=== PATIENT | female | born 1985 | race Two or more races ===

== ENCOUNTER 2016-09-23 01:00 | Inpatient (IN) | payer OTHER ==
[2016-09-23 01:50] VITALS: BP 112/70
[2016-09-23] MEDS: Morphine Sulfate 2 mg/mL 1mL Syr IVP PRN ×5 (03:01→22:24)
[2016-09-23] MEDS ORDERED: Sodium Chloride 0.9% 1,000 ML IV SCH (03:30)
[2016-09-23 07:01] LABS: ALB/GLOB RATIO 1.4 (1.0-1.8); ALKALINE PHOSPHATASE 93 U/L (34-104); ANION GAP 9.1 (7.0-16.0); BILIRUBIN,TOTAL 0.2 mg/dL (0.3-1.0); BUN - UREA NITROGEN 12 mg/dL (7-25); CALCIUM SERUM 8.7 mg/dL (8.6-10.3); CARBON DIOXIDE 20.8 mEq/L (21.0-31.0); CHLORIDE 114 mEq/L (98-107); CREATININE - SERUM 0.6 mg/dL (0.6-1.2); GLUCOSE 170 mg/dL (70-105); SGOT 10 U/L (13-39); SGPT/ALT 20 U/L (7-52); SODIUM SERUM 141 mEq/L (136-145)
[2016-09-23 07:20] LABS: POTASSIUM SERUM 2.9 mEq/L (3.5-5.1)
[2016-09-23 07:56] LABS: % BASOPHILS 0.1 % (0.0-2.0); % EOSINOPHILS 0.4 % (0.0-5.0); % LYMPHOCYTES 12.3 % (20.0-50.0); % MONOCYTES 0.8 % (2.0-10.0); % NEUTROPHILS 86.4 % (40.0-80.0); HEMATOCRIT 27.6 % (35.0-45.0); HEMOGLOBIN 9.2 gm/dL (11.7-15.5); MEAN CORPUSCULAR HEMOGLOBIN 27.2 pg (27.0-31.0); MEAN CORPUSCULAR HGB CONC 33.1 pg (28.0-36.0); MEAN PLATELET VOLUME 9.8 fl; NEUTROPHILE ABSOLUTE 7.4 Th/cmm (1.8-8.0); PLATELET COUNT 299 Th/cmm (150-400); RED BLOOD COUNT 3.37 Mil/cmm (3.80-5.10); RED CELL DISTRIBUTION WIDTH 17.9 % (11.5-20.0); WHITE BLOOD COUNT 8.6 Th/cmm (4.8-10.8)
[2016-09-23] MEDS ORDERED: Albuterol Nebulizer 2.5mg/3mL HHN PRN (08:38)
[2016-09-23] MEDS ORDERED: Ipratropium Neb 0.5 mg/2.5 mL UD HHN PRN (08:38)
[2016-09-23] MEDS ORDERED: MONTELUKAST SODIUM 4 MG PO SCH (09:00)
[2016-09-23] MEDS ORDERED: Potassium Chloride 40 MEQ, Lidocaine 1% 20mL Vial 25 MG in Sodium Chloride 0.9% 250 ML IV ONE (09:00)
--- NOTE | 2016-09-23 12:33 | Internal Medicine Prog Note ---
Internal Medicine Subjective - Subjective Service Date: 09/23/16 ([facility] [id number]) Internal Medicine Objective - Results Result Diagrams: 09/23/16 06:15 09/23/16 06:15 Recent Labs: Laboratory Last Values WBC 8.6 Th/cmm (4.8-10.8) 09/23/16 06:15 RBC 3.37 Mil/cmm (3.80-5.10) L 09/23/16 06:15 Hgb 9.2 gm/dL (11.7-15.5) L 09/23/16 06:15 Hct 27.6 % (35.0-45.0) L 09/23/16 06:15 MCV 82.0 fl (81-100) 09/23/16 06:15 MCH 27.2 pg (27.0-31.0) 09/23/16 06:15 MCHC Differential 33.1 pg (28.0-36.0) 09/23/16 06:15 RDW 17.9 % (11.5-20.0) 09/23/16 06:15 Plt Count 299 Th/cmm (150-400) 09/23/16 06:15 MPV 9.8 fl 09/23/16 06:15 Neutrophils % 86.4 % (40.0-80.0) H 09/23/16 06:15 Lymphocytes % 12.3 % (20.0-50.0) L 09/23/16 06:15 Monocytes % 0.8 % (2.0-10.0) L 09/23/16 06:15 Eosinophils % 0.4 % (0.0-5.0) 09/23/16 06:15 Basophils % 0.1 % (0.0-2.0) 09/23/16 06:15 Sodium 141 mEq/L (136-145) 09/23/16 06:15 Potassium 2.9 mEq/L (3.5-5.1) L* 09/23/16 06:15 Chloride 114 mEq/L (98-107) H 09/23/16 06:15 Carbon Dioxide 20.8 mEq/L (21.0-31.0) L 09/23/16 06:15 Anion Gap 9.1 (7.0-16.0) 09/23/16 06:15 BUN 12 mg/dL (7-25) 09/23/16 06:15 Creatinine 0.6 mg/dL (0.6-1.2) 09/23/16 06:15 Est GFR ( Amer) > 60.0 ml/min (>90) 09/23/16 06:15 Est GFR (Non-Af Amer) > 60.0 ml/min 09/23/16 06:15 BUN/Creatinine Ratio 20.0 09/23/16 06:15 Glucose 170 mg/dL (70-105) H 09/23/16 06:15 Calcium 8.7 mg/dL (8.6-10.3) 09/23/16 06:15 Magnesium 1.8 mg/dL (1.9-2.7) L 09/23/16 06:15 Total Bilirubin 0.2 mg/dL (0.3-1.0) L 09/23/16 06:15 AST 10 U/L (13-39) L 09/23/16 06:15 ALT 20 U/L (7-52) 09/23/16 06:15 Alkaline Phosphatase 93 U/L (34-104) 09/23/16 06:15 Total Protein 6.2 gm/dL (6.0-8.3) 09/23/16 06:15 Albumin 3.6 gm/dL (3.7-5.3) L 09/23/16 06:15 Globulin 2.6 gm/dL 09/23/16 06:15 Albumin/Globulin Ratio 1.4 (1.0-1.8) 09/23/16 06:15 - Physical Exam Vitals and I&O: Vital Signs Temp 97.6 F 09/23/16 08:36 Pulse 69 09/23/16 08:36 Resp 18 09/23/16 09:32 BP 115/60 09/23/16 08:36 Pulse Ox 100 09/23/16 08:36 Intake & Output 09/22/16 09/23/16 09/23/16 18:59 06:59 18:59 Intake Total 200 Balance 200 Weight (lbs) 116 lb Intake: Oral 200 Other: # Voids 1 Active Medications: Current Medications Acetaminophen (Tylenol) 650 mg PO Q4HR PRN PRN Reason: Pain or Fever >101 Stop: 11/22/16 08:38 Albuterol Sulfate (Albuterol 2.5mg/3ml Neb Ud) 2.5 mg HHN Q2HRT PRN PRN Reason: Shortness of Breath or Wheeze Stop: 11/22/16 08:37 Diphenhydramine HCl (Benadryl 50 Mg/Ml) 25 mg IVP Q4HR PRN PRN Reason: Allergy Symptoms Stop: 11/22/16 02:18 Last Admin: 09/23/16 11:50 Dose: 25 mg Potassium Chloride/Dextrose/Sod Cl (D5-0.9ns W/40 Meq Kcl) 1,000 mls @ 100 mls/ hr IV .Q10H YARELI Stop: 11/22/16 08:38 Potassium Chloride 40 meq/Lidocaine HCl 25 mg/ Sodium Chloride 272.5 mls @ 68 mls/hr IV X1 ONE Stop: 09/23/16 13:00 Last Admin: 09/23/16 09:34 Dose: 68 mls/hr Magnesium Sulfate (Magnesium Sulfate Premix) 2 gm in 50 mls @ 25 mls/hr IV X1 ONE Stop: 09/23/16 14:24 Ipratropium [place] (Atrovent Neb 0.5mg/2.5ml) 0.5 mg HHN Q2HRT PRN PRN Reason: Shortness of Breath or Wheeze Stop: 11/22/16 08:37 Levetiracetam (Keppra) 500 mg PO BID [facility] Stop: 11/22/16 08:59 Last Admin: 09/23/16 09:12 Dose: 500 mg Levothyroxine Sodium (Synthroid) 0.025 mg PO QDAC [facility] Stop: 11/23/16 07:29 Lorazepam (Ativan) 1 mg IV Q4HR PRN; Protocol PRN Reason: Seizure Stop: 11/22/16 08:40 Miscellaneous (Montelukast Sodium [Singulair]) 4 mg PO DAILY YARELI Stop: 11/22/16 08:59 Morphine Sulfate (Morphine) 2 mg IVP Q4HR PRN PRN Reason: Abdominal Pain Stop: 11/22/16 02:15 Last Admin: 09/23/16 11:49 Dose: 2 mg Ondansetron HCl (Zofran) 4 mg IV Q4H PRN PRN Reason: Nausea / Vomiting Stop: 11/22/16 02:15 Last Admin: 09/23/16 03:20 Dose: 4 mg Pantoprazole Sodium (Protonix) 40 mg IVP BID YARELI Stop: 11/22/16 08:59 Last Admin: 09/23/16 09:12 Dose: 40 mg Zolpidem Tartrate (Ambien) 10 mg PO HS PRN PRN Reason: Insomnia Stop: 11/22/16 08:37 Internal Medicine Assmt/Plan - Assessment Assessment: Intractable nausea and vomiting possible gi bleed? abdominal pain seizures hx edometrial ca hypomagnesemia asthma
[2016-09-23] MEDS ORDERED: Mag Sulfate 2gm/50mL Premix 2 GM/50 ML BAG IV ONE (13:00)
--- NOTE | 2016-09-23 15:13 | History & Physical ---
CHIEF COMPLAINT: Acute chest pain, diarrhea, and nausea. HISTORY OF PRESENT ILLNESS: This is a 31-year-old female who is a direct admission from [facility]. According to the patient, she has been having chest pain with diarrhea associated with vomiting since last week on Thursday. The patient states that she saw tinged of blood in her diarrhea, but denied any blood in her vomit. The patient states that she has been having off and on fevers from 98 to as high as 103. The patient also stated that she was recently discharged from [facility] on Thursday and she was sent home with central line to receive IV antibiotics due to focal infection in her blood. The patient denies any weakness, any dizziness or any headache. For continuation of care and due to insurance purposes, the patient is now here at [facility]. PAST MEDICAL HISTORY: Endometrial cancer, DVT, asthma, hypothyroidism, seizure and sepsis. PAST SURGICAL HISTORY: Laparoscopic appendectomy, hysterectomy and I and D. ALLERGIES: KETOROLAC, ASPIRIN, CLINDAMYCIN, HYDROMORPHONE, IBUPROFEN, IODINE AND METOCLOPRAMIDE. FAMILY HISTORY: Noncontributory. MEDICATIONS: Unasyn, Keppra, Singulair, albuterol inhaler, Synthroid, ____, [place], cisplatin, ____ and IV heparin. REVIEW OF SYSTEMS: GENERAL: Denies any fever or any chills. CARDIOVASCULAR: Complains of off and on chest pressure. RESPIRATORY: Denies any shortness of breath. GASTROINTESTINAL: Denies any nausea, vomiting or any diarrhea at this time. GENITOURINARY: Denies any dysuria. All other systems are reviewed by me and are negative. PHYSICAL EXAMINATION: EXTREMITIES: The patient is well developed, well nourished, no apparent distress. VITAL SIGNS: Temperature 97.6, heart rate ____, blood pressure 115/60, respirations 17, O2 100%. HEENT: Head; normocephalic, atraumatic. NECK: Supple. No mass. LUNGS: Clear bilaterally. HEART: Regular rhythm. ABDOMEN: Soft, nontender. LABORATORY DATA: WBC 8.6, H and H 9.2 and 27.6, platelet of 299. Sodium 141, potassium 2.9, chloride 114, carbon dioxide 20.8, BUN 12, creatinine 0.6. Magnesium 1.8. ASSESSMENT: Intractable nausea, vomiting, diarrhea, abdominal pain, chest pain, history of endometrial cancer, history of asthma, history of hypothyroidism and seizure disorder. PLAN: The patient will be admitted to the telemetry unit. The patient will have a consultation with Dr. Montanez. The patient will be kept on a full liquid diet. CBC and BMP will be monitored as well. The patient will be kept on IV fluids for hydration and we will monitor the patient's electrolytes level. We will continue to monitor the patient. JOB# [id number]
--- NOTE | 2016-09-23 16:02 | Admit Criteria Form ---
Admit Criteria Forms - Admit Criteria Diagnosis: HYPONATREMIA; HYPERNATREMIA; HYPOKALEMIA; HYPERKALEMIA; HYPOCALCEMIA; HYPERCALCEMIA Clinical Indications for Inpatient Care (Place 'X' for any and all applicable criteria): Ongoing inpatient care may be indicated for ANY ONE of the following [G](1)(2)(3 )(5): [ ]I. Hyponatremia with ANY ONE of the following: [ ]a) Sodium less than 130 mEq/L (mmol/L) (new) (6)(22) [ ]b) Sodium less than 135 mEq/L (mmol/L) with ANY ONE of the following: [ ]i) Severe medical etiology requiring inpatient management (eg, heart failure, hypovolemia) [ ]ii) Altered mental status [ ]iii) Seizures [ ]II. Hypernatremia with ANY ONE of the following: [ ]a) Sodium greater than 155 mEq/L (mmol/L) [ ]b) Sodium greater than 150 mEq/L (mmol/L) with ANY ONE of the following: [ ] i) Altered mental status [ ]ii) Seizures [ ]iii) Severe medical etiology (eg, hypovolemia, diabetes insipidus) [ ]iv) Severe weakness [ ]v) Severe medical etiology (eg, hemolysis, infection, drug overdose) [X]III. Hypokalemia with ANY ONE of the following: [ ]a) Potassium less than 2.5 mEq/L (mmol/L) despite outpatient and emergency treatment [X]b) Potassium less than 3.0 mEq/L (mmol/L) with ANY ONE of the following: [ ]i) Weakness [ ]ii) Cardiac abnormality (eg, arrhythmia, conduction disturbance) [ ]iii) Cardiac ischemia [ ]iv) Ileus [ ]v) Ongoing medical cause requiring inpatient management. ( e.g., acute renal wasting, SIADH) [X]vi) Other severe symptoms [ ] IV. Hyperkalemia with ANY ONE of the following: [ ]a) Potassium greater than 6.5 mEq/L (mmol/L) [ ]b) Potassium greater than 5 mEq/L (mmol/L) with ANY ONE of the following: [ ]i) Severe ECG findings [H] [ ]ii) Acute worsening of renal failure (creatinine greater than 2.5 mg/dL (221 micromoles/L) or significant elevation for age and size) [ ] V. Hypocalcemia with ANY ONE of the following: [ ]a) Calcium less than 7 mg/dL (1.75 mmol/L) despite outpatient and emergency treatment(19) [ ]b) Calcium less than 8 mg/dL (2 mmol/L) with significant symptoms or findings; examples include: [ ]i) Cardiac abnormality (eg, arrhythmia or conduction disturbance) [ ]ii) Altered mental status [ ]iii) Seizures [ ]iv) Breathing difficulty [ ]v) Muscle spasms [ ]. Hypercalcemia with ANY ONE of the following: [ ]a) Calcium greater than 14 mg/dL (3.5 mmol/L) [ ]b) Calcium greater than 12 mg/dL (3 mmol/L) with ANY ONE of the following: [ ]i) Significant dehydration or hypovolemia as indicated by ANY ONE of the following(2): [ ]1. Clinically significant dehydration as indicated by ANY ONE of the following: [ ]A. Acute loss of weight from baseline (5% of body weight in adults, 9% in pediatric patients) [ ]B. Hemodynamic instability [ ]C. Acute renal failure [ ]D. Serum sodium greater than 150 mEq/L (mmol/L) [ ]2) Dehydration that is persistent indicated by ALL of the following: [ ]A. Oral rehydration therapy not tolerated or insufficient to adequately correct dehydration [ ]B. Appropriate intravenous treatment (eg, fluids ) does not readily correct dehydration ie, after 12 to 24 hours of treatment) [ ]ii) Significant symptoms or findings; examples include: [ ]1) Altered mental status [ ]2) Cardiac abnormality (eg, arrhythmia, conduction disturbance) [ ]3) Cardiac abnormality (eg, arrhythmia, conduction disturbance) The original [employer]formerly [facility] content created by [employer] has been revised. The portions of the content which have been revised are identified through the use of italic text or in bold, and [facility] has neither reviewed nor approved the modified material. All other unmodified content is copyright [facility] [employer] Please see references footnoted in the original [employer] [facility] edition 2016 Admit Criteria Met?: Yes
[2016-09-23] MEDS: D5-0.9NS w/40 mEq KCL 1,000 ML IV SCH (16:33)
[2016-09-23] MEDS: Ampicillin Sodium/Sulbactam 1.5 GM in Sodium Chloride 0.9% 100 ML IV SCH (17:39)
[2016-09-24] MEDS: Morphine Sulfate 2 mg/mL 1mL Syr IVP PRN ×5 (03:49→23:41)
[2016-09-24 06:07] LABS: % BASOPHILS 0.7 % (0.0-2.0); % EOSINOPHILS 0.4 % (0.0-5.0); % LYMPHOCYTES 32.9 % (20.0-50.0); % MONOCYTES 5.8 % (2.0-10.0); % NEUTROPHILS 60.2 % (40.0-80.0); HEMATOCRIT 25.3 % (35.0-45.0); HEMOGLOBIN 8.4 gm/dL (11.7-15.5); MEAN CELL VOLUME 81.8 fl (81-100); MEAN PLATELET VOLUME 9.3 fl; PLATELET COUNT 262 Th/cmm (150-400); RED CELL DISTRIBUTION WIDTH 18.1 % (11.5-20.0); WHITE BLOOD COUNT 8.4 Th/cmm (4.8-10.8)
[2016-09-24 06:28] LABS: ALB/GLOB RATIO 1.4 (1.0-1.8); ALKALINE PHOSPHATASE 73 U/L (34-104); ANION GAP 7.3 (7.0-16.0); BILIRUBIN,TOTAL 0.2 mg/dL (0.3-1.0); BUN - UREA NITROGEN 5 mg/dL (7-25); BUN/CREATININE RATIO 7.1; CALCIUM SERUM 7.9 mg/dL (8.6-10.3); CHLORIDE 118 mEq/L (98-107); CREATININE - SERUM 0.7 mg/dL (0.6-1.2); GLUCOSE 213 mg/dL (70-105); PHOSPHOROUS 2.7 mg/dL (2.5-5.0); POTASSIUM SERUM 4.3 mEq/L (3.5-5.1); SGOT 9 U/L (13-39); SGPT/ALT 16 U/L (7-52); SODIUM SERUM 143 mEq/L (136-145)
[2016-09-24] MEDS: Ampicillin Sodium/Sulbactam 1.5 GM in Sodium Chloride 0.9% 100 ML IV SCH ×5 (06:31→23:40)
[2016-09-24 07:20] LABS: TSH 0.21 uIU/ml (0.34-5.60)
[2016-09-24] MEDS: Levothyroxine 0.025 Mg Tab PO SCH (07:30)
--- NOTE | 2016-09-24 10:01 | Consultation ---
INPATIENT GASTROINTESTINAL CONSULTATION REFERRING PHYSICIAN: Dr. Curiel. REASON FOR CONSULTATION: Nausea, vomiting, and diarrhea. HISTORY OF PRESENT ILLNESS: A 31-year-old female, who has nausea, vomiting, diarrhea for approximately one week, came to the hospital for these symptoms. She denies having any hematemesis, coffee-ground emesis. Her diarrhea is without any blood. PAST MEDICAL HISTORY: Endometrial cancer, DVT, asthma, hypothyroidism, seizure disorder. PAST SURGICAL HISTORY: Laparoscopic appendectomy, hysterectomy, I and D. FAMILY HISTORY: Father with colon cancer. SOCIAL HISTORY: Denies tobacco, alcohol, or IV drug usage. ALLERGIES: KETOROLAC, ASPIRIN, CLINDAMYCIN, HYDROMORPHONE, IBUPROFEN, IODINE. REVIEW OF SYSTEMS: Ten-point review of system was notable for the nausea, vomiting, diarrhea. All systems were otherwise negative. PHYSICAL EXAMINATION: VITAL SIGNS: Temperature is 97.8, breathing 17, pulse of 80, blood pressure 120/70, satting 99%. GENERAL: In no apparent distress. HEENT: Eyes are anicteric, normal conjunctivae. Head normocephalic, atraumatic. Moist mucous membranes. NECK: Soft, supple. CHEST: Clear, no effort. CARDIOVASCULAR: Regular rate and rhythm. ABDOMEN: Soft, nondistended, mildly tender lower abdomen. No rebound or guarding. SKIN: Warm, dry. EXTREMITIES: Revealed no cyanosis. PSYCHOLOGIC: Alert and oriented x 3. LABORATORY DATA: Showed white count 8.6, hemoglobin 9.2, platelets of 299, total bilirubin 0.2, AST 10, ALT 20, alkaline phosphatase 93. IMPRESSION: This is a 31-year-old female with nausea, vomiting, diarrhea of unclear etiology. Cause could be gastroenteritis versus underlying infectious colitis or inflammatory bowel disease or even irritable bowel syndrome. PLAN: 1. Check stool studies. 2. Check test. 3. If test is negative, then consider CT of the abdomen and pelvis. 4. Check an abdominal ultrasound in the meantime. 5. May need endoscopic workup if symptoms persist and we will check to see if the patient has records elsewhere of procedures. Thank you for allowing me to participate. Please call me if you have any questions. JOB# [id number]
[2016-09-24] MEDS: D5-0.9NS w/40 mEq KCL 1,000 ML IV SCH ×2 (10:34→16:31)
--- NOTE | 2016-09-24 11:34 | Diagnostic Imaging Report ---
Ultrasound abdomen History: abdominal pain, nausea and vomiting COMPARISON: None Technique: Sonography of the abdomen was performed in multiple planes. FINDINGS: Exam is limited due to bowel gas. The liver demonstrates normal echogenicity with no evidence of focal lesions. The liver measures 14.9 cm. No evidence of gallstones or gallbladder wall thickening. The common bile duct measures 2 mm. Evaluation of the pancreas is limited due to bowel gas. The right kidney measures 10.5 cm. No evidence of focal lesions or hydronephrosis. The left kidney measures 10.8 cm. No evidence of focal lesions. There is mild left hydronephrosis. The spleen measures 9.3 cm. The visualized portions of the abdominal aorta are within normal limits in size. IMPRESSION: Mild left hydronephrosis. No sonographic evidence of renal stones. If indicated, CT would provide for additional detail and assessment No evidence of gallstones.
--- NOTE | 2016-09-24 16:05 | Internal Medicine Prog Note ---
Internal Medicine Subjective - Subjective Service Date: 09/24/16 Patient seen and examined:: with staff Patient is:: awake Per staff patient is:: no adverse event Internal Medicine Objective - Results Result Diagrams: 09/24/16 05:54 09/24/16 05:54 Recent Labs: Laboratory Last Values WBC 8.4 Th/cmm (4.8-10.8) 09/24/16 05:54 RBC 3.10 Mil/cmm (3.80-5.10) L 09/24/16 05:54 Hgb 8.4 gm/dL (11.7-15.5) L 09/24/16 05:54 Hct 25.3 % (35.0-45.0) L 09/24/16 05:54 MCV 81.8 fl (81-100) 09/24/16 05:54 MCH 27.0 pg (27.0-31.0) 09/24/16 05:54 MCHC Differential 33.0 pg (28.0-36.0) 09/24/16 05:54 RDW 18.1 % (11.5-20.0) 09/24/16 05:54 Plt Count 262 Th/cmm (150-400) 09/24/16 05:54 MPV 9.3 fl 09/24/16 05:54 Neutrophils % 60.2 % (40.0-80.0) 09/24/16 05:54 Lymphocytes % 32.9 % (20.0-50.0) 09/24/16 05:54 Monocytes % 5.8 % (2.0-10.0) 09/24/16 05:54 Eosinophils % 0.4 % (0.0-5.0) 09/24/16 05:54 Basophils % 0.7 % (0.0-2.0) 09/24/16 05:54 Sodium 143 mEq/L (136-145) 09/24/16 05:54 Potassium 4.3 mEq/L (3.5-5.1) 09/24/16 05:54 Chloride 118 mEq/L (98-107) H 09/24/16 05:54 Carbon Dioxide 22.0 mEq/L (21.0-31.0) 09/24/16 05:54 Anion Gap 7.3 (7.0-16.0) 09/24/16 05:54 BUN 5 mg/dL (7-25) L 09/24/16 05:54 Creatinine 0.7 mg/dL (0.6-1.2) 09/24/16 05:54 Est GFR ( Amer) > 60.0 ml/min (>90) 09/24/16 05:54 Est GFR (Non-Af Amer) > 60.0 ml/min 09/24/16 05:54 BUN/Creatinine Ratio 7.1 09/24/16 05:54 Glucose 213 mg/dL (70-105) H 09/24/16 05:54 Calcium 7.9 mg/dL (8.6-10.3) L 09/24/16 05:54 Phosphorus 2.7 mg/dL (2.5-5.0) 09/24/16 05:54 Magnesium 2.0 mg/dL (1.9-2.7) 09/24/16 05:54 Total Bilirubin 0.2 mg/dL (0.3-1.0) L 09/24/16 05:54 AST 9 U/L (13-39) L 09/24/16 05:54 ALT 16 U/L (7-52) 09/24/16 05:54 Alkaline Phosphatase 73 U/L (34-104) 09/24/16 05:54 Ammonia 47 umol/L (16-53) 09/24/16 05:54 Total Protein 5.4 gm/dL (6.0-8.3) L 09/24/16 05:54 Albumin 3.1 gm/dL (3.7-5.3) L 09/24/16 05:54 Globulin 2.3 gm/dL 09/24/16 05:54 Albumin/Globulin Ratio 1.4 (1.0-1.8) 09/24/16 05:54 TSH 0.21 uIU/ml (0.34-5.60) L 09/24/16 05:54 Urine Test NEGATIVE 09/24/16 08:30 - Physical Exam Vitals and I&O: Vital Signs Temp 98.3 F 09/24/16 12:00 Pulse 65 09/24/16 12:00 Resp 18 09/24/16 15:33 BP 131/75 09/24/16 12:00 Pulse Ox 100 09/24/16 12:00 Intake & Output 09/23/16 09/24/16 09/24/16 18:59 06:59 18:59 Intake Total 100 1100 200 Balance 100 1100 200 Intake: Intake, IV Amount 100 1100 200 Ampicillin Sodium/ 100 100 200 Sulbactam 1.5 gm In Sodium Chloride 0.9% 100 ml @ 100 mls/hr IV Q6HR [facility] Rx#:[id number] D5-0.9NS w/40 mEq KCL 1, 1000 000 ml @ 100 mls/hr IV . Q10H [facility] Rx#:[id number] Active Medications: Current Medications Acetaminophen (Tylenol) 650 mg PO Q4HR PRN PRN Reason: Pain or Fever >101 Stop: 11/22/16 08:38 Albuterol Sulfate (Albuterol 2.5mg/3ml Neb Ud) 2.5 mg HHN Q2HRT PRN PRN Reason: Shortness of Breath or Wheeze Stop: 11/22/16 08:37 Diphenhydramine HCl (Benadryl 50 Mg/Ml) 25 mg IVP Q4HR PRN PRN Reason: Allergy Symptoms Stop: 11/22/16 02:18 Last Admin: 09/24/16 13:57 Dose: 25 mg Ampicillin Sodium/Sulbactam (Sodium 1.5 gm/ Sodium Chloride) 100 mls @ 100 mls/ hr IV Q6HR [facility] Stop: 11/22/16 17:59 Last Infusion: 09/24/16 12:48 Dose: Infused Potassium Chloride/Dextrose/Sod Cl (D5-0.9ns W/40 Meq Kcl) 1,000 mls @ 70 mls/ hr IV .[id number] [facility] Stop: 11/23/16 15:29 Ipratropium [place] (Atrovent Neb 0.5mg/2.5ml) 0.5 mg HHN Q2HRT PRN PRN Reason: Shortness of Breath or Wheeze Stop: 11/22/16 08:37 Levetiracetam (Keppra) 500 mg PO BID [facility] Stop: 11/22/16 08:59 Last Admin: 09/24/16 08:37 Dose: 500 mg Levothyroxine Sodium (Synthroid) 0.025 mg PO QDAC [facility] Stop: 11/23/16 07:29 Last Admin: 09/24/16 07:30 Dose: Not Given Lorazepam (Ativan) 1 mg IV Q4HR PRN; Protocol PRN Reason: Seizure Stop: 11/22/16 08:40 Miscellaneous (Montelukast Sodium [Singulair]) 4 mg PO DAILY YARELI Stop: 11/22/16 08:59 Last Admin: 09/23/16 17:46 Dose: Not Given Morphine Sulfate (Morphine) 2 mg IVP Q4HR PRN PRN Reason: Abdominal Pain Stop: 11/22/16 02:15 Last Admin: 09/24/16 13:57 Dose: 2 mg Ondansetron HCl (Zofran) 4 mg IV Q4H PRN PRN Reason: Nausea / Vomiting Stop: 11/22/16 02:15 Last Admin: 09/23/16 16:40 Dose: 4 mg Pantoprazole Sodium (Protonix) 40 mg IVP BID YARELI Stop: 11/22/16 08:59 Last Admin: 09/24/16 08:38 Dose: 40 mg Zolpidem Tartrate (Ambien) 10 mg PO HS PRN PRN Reason: Insomnia Stop: 11/22/16 08:37 General: alert HEENT: NC/AT, PERRLA Neck: Supple Lungs: CTAB Cardiovascular: RRR, Normal S1, Normal S2, without murmur Abdomen: soft non-tender, non-distended Neurological: no change Internal Medicine Assmt/Plan - Assessment Assessment: Intractable nausea and vomiting possible gi bleed? abdominal pain seizures hx edometrial ca hypomagnesemia asthma - Plan Plan: CT ABD/PELVIS TODAY f/u labs in am ivf for hydration
[2016-09-25] MEDS: D5-0.9NS w/40 mEq KCL 1,000 ML IV SCH (04:50)
[2016-09-25] MEDS: Morphine Sulfate 2 mg/mL 1mL Syr IVP PRN ×5 (04:51→22:55)
[2016-09-25] MEDS: Ampicillin Sodium/Sulbactam 1.5 GM in Sodium Chloride 0.9% 100 ML IV SCH ×3 (05:29→17:13)
[2016-09-25] MEDS: Levothyroxine 0.025 Mg Tab PO SCH (06:49)
[2016-09-25 07:13] LABS: % EOSINOPHILS 1.7 % (0.0-5.0); % LYMPHOCYTES 45.3 % (20.0-50.0); % MONOCYTES 6.9 % (2.0-10.0); % NEUTROPHILS 45.1 % (40.0-80.0); HEMOGLOBIN 9.7 gm/dL (11.7-15.5); MEAN CELL VOLUME 81.9 fl (81-100); MEAN CORPUSCULAR HEMOGLOBIN 27.1 pg (27.0-31.0); MEAN CORPUSCULAR HGB CONC 33.1 pg (28.0-36.0); MEAN PLATELET VOLUME 9.2 fl; NEUTROPHILE ABSOLUTE 2.7 Th/cmm (1.8-8.0); PLATELET COUNT 304 Th/cmm (150-400); RED BLOOD COUNT 3.57 Mil/cmm (3.80-5.10)
[2016-09-25 07:19] LABS: HEMATOCRIT 29.2 % (35.0-45.0); WHITE BLOOD COUNT 5.9 Th/cmm (4.8-10.8)
[2016-09-25 07:47] LABS: ANION GAP 6.7 (7.0-16.0); BUN - UREA NITROGEN 3 mg/dL (7-25); CALCIUM SERUM 8.7 mg/dL (8.6-10.3); CARBON DIOXIDE 27.4 mEq/L (21.0-31.0); CHLORIDE 109 mEq/L (98-107); CREATININE - SERUM 0.6 mg/dL (0.6-1.2); GLUCOSE 78 mg/dL (70-105); POTASSIUM SERUM 3.1 mEq/L (3.5-5.1); SODIUM SERUM 140 mEq/L (136-145)
--- NOTE | 2016-09-25 10:42 | Diagnostic Imaging Report ---
CT scan abdomen and pelvis without intravenous contrast HISTORY: Pain Total DLP equals 378 CTDI equals 8.0 Axial sections were obtained from the xiphoid process down to the pubic symphysis. The liver exhibits a normal size and contour. No focal lesions. The spleen appears normal. No abnormality seen in the region of the pancreas. No focal renal lesions. The exam of the pelvis demonstrates preservation of normal fat planes. No abnormal soft tissue masses or abnormal fluid collections. There is mildly distended stool-filled rectum. Several colonic diverticula noted. IMPRESSION: 1. No definite acute abnormalities 2. Mild diverticulosis 3. Mildly distended stool-filled rectum
--- NOTE | 2016-09-25 16:42 | Internal Medicine Prog Note ---
Internal Medicine Subjective - Subjective Patient seen and examined:: with staff Patient is:: awake, verbal, interactive Patient Complaints of:: vomitting Per staff patient is:: no adverse event, poor appetite Internal Medicine Objective - Results Result Diagrams: 09/25/16 07:00 09/25/16 07:00 Recent Labs: Laboratory Last Values WBC 5.9 Th/cmm (4.8-10.8) D 09/25/16 07:00 RBC 3.57 Mil/cmm (3.80-5.10) L 09/25/16 07:00 Hgb 9.7 gm/dL (11.7-15.5) L 09/25/16 07:00 Hct 29.2 % (35.0-45.0) L D 09/25/16 07:00 MCV 81.9 fl (81-100) 09/25/16 07:00 MCH 27.1 pg (27.0-31.0) 09/25/16 07:00 MCHC Differential 33.1 pg (28.0-36.0) 09/25/16 07:00 RDW 18.0 % (11.5-20.0) 09/25/16 07:00 Plt Count 304 Th/cmm (150-400) 09/25/16 07:00 MPV 9.2 fl 09/25/16 07:00 Neutrophils % 45.1 % (40.0-80.0) 09/25/16 07:00 Lymphocytes % 45.3 % (20.0-50.0) 09/25/16 07:00 Monocytes % 6.9 % (2.0-10.0) 09/25/16 07:00 Eosinophils % 1.7 % (0.0-5.0) 09/25/16 07:00 Basophils % 1.0 % (0.0-2.0) 09/25/16 07:00 Sodium 140 mEq/L (136-145) 09/25/16 07:00 Potassium 3.1 mEq/L (3.5-5.1) L 09/25/16 07:00 Chloride 109 mEq/L (98-107) H 09/25/16 07:00 Carbon Dioxide 27.4 mEq/L (21.0-31.0) 09/25/16 07:00 Anion Gap 6.7 (7.0-16.0) L 09/25/16 07:00 BUN 3 mg/dL (7-25) L 09/25/16 07:00 Creatinine 0.6 mg/dL (0.6-1.2) 09/25/16 07:00 Est GFR ( Amer) > 60.0 ml/min (>90) 09/25/16 07:00 Est GFR (Non-Af Amer) > 60.0 ml/min 09/25/16 07:00 BUN/Creatinine Ratio 5.0 09/25/16 07:00 Glucose 78 mg/dL (70-105) 09/25/16 07:00 Calcium 8.7 mg/dL (8.6-10.3) 09/25/16 07:00 Phosphorus 2.7 mg/dL (2.5-5.0) 09/24/16 05:54 Magnesium 2.0 mg/dL (1.9-2.7) 09/24/16 05:54 Total Bilirubin 0.2 mg/dL (0.3-1.0) L 09/24/16 05:54 AST 9 U/L (13-39) L 09/24/16 05:54 ALT 16 U/L (7-52) 09/24/16 05:54 Alkaline Phosphatase 73 U/L (34-104) 09/24/16 05:54 Ammonia 47 umol/L (16-53) 09/24/16 05:54 Total Protein 5.4 gm/dL (6.0-8.3) L 09/24/16 05:54 Albumin 3.1 gm/dL (3.7-5.3) L 09/24/16 05:54 Globulin 2.3 gm/dL 09/24/16 05:54 Albumin/Globulin Ratio 1.4 (1.0-1.8) 09/24/16 05:54 TSH 0.21 uIU/ml (0.34-5.60) L 09/24/16 05:54 Urine Test NEGATIVE 09/24/16 08:30 - Physical Exam Vitals and I&O: Vital Signs Temp 97.9 F 09/25/16 12:00 Pulse 67 09/25/16 12:00 Resp 18 09/25/16 12:00 BP 128/78 09/25/16 12:00 Pulse Ox 97 09/25/16 12:00 Intake & Output 09/24/16 09/25/16 09/25/16 18:59 06:59 18:59 Intake Total 300 2262.167 100 Balance 300 2262.167 100 Intake: Intake, IV Amount 300 2062.167 100 Ampicillin Sodium/ 300 200 100 Sulbactam 1.5 gm In Sodium Chloride 0.9% 100 ml @ 100 mls/hr IV Q6HR [facility] Rx#:[id number] D5-0.9NS w/40 mEq KCL 1, 862.167 000 ml @ 70 mls/hr IV . [id number] [facility] Rx#:[id number] Oral 200 Active Medications: Current Medications Acetaminophen (Tylenol) 650 mg PO Q4HR PRN PRN Reason: Pain or Fever >101 Stop: 11/22/16 08:38 Albuterol Sulfate (Albuterol 2.5mg/3ml Neb Ud) 2.5 mg HHN Q2HRT PRN PRN Reason: Shortness of Breath or Wheeze Stop: 11/22/16 08:37 Diphenhydramine HCl (Benadryl 50 Mg/Ml) 25 mg IVP Q4HR PRN PRN Reason: Allergy Symptoms Stop: 11/22/16 02:18 Last Admin: 09/25/16 14:50 Dose: 25 mg Ampicillin Sodium/Sulbactam (Sodium 1.5 gm/ Sodium Chloride) 100 mls @ 100 mls/ hr IV Q6HR [facility] Stop: 11/22/16 17:59 Last Infusion: 09/25/16 12:59 Dose: Infused Potassium Chloride/Dextrose/Sod Cl (D5-0.9ns W/40 Meq Kcl) 1,000 mls @ 70 mls/ hr IV .[id number] [facility] Stop: 11/23/16 15:29 Last Admin: 09/25/16 04:50 Dose: 70 mls/hr Ipratropium [place] (Atrovent Neb 0.5mg/2.5ml) 0.5 mg HHN Q2HRT PRN PRN Reason: Shortness of Breath or Wheeze Stop: 11/22/16 08:37 Levetiracetam (Keppra) 500 mg PO BID [facility] Stop: 11/22/16 08:59 Last Admin: 09/25/16 16:11 Dose: 500 mg Levothyroxine Sodium (Synthroid) 0.025 mg PO QDAC [facility] Stop: 11/23/16 07:29 Last Admin: 09/25/16 06:49 Dose: 0.025 mg Lorazepam (Ativan) 1 mg IV Q4HR PRN; Protocol PRN Reason: Seizure Stop: 11/22/16 08:40 Montelukast Sodium (Singulair) 5 mg PO DAILY [facility] Stop: 11/24/16 08:59 Last Admin: 09/25/16 09:08 Dose: 5 mg Morphine Sulfate (Morphine) 2 mg IVP Q4HR PRN PRN Reason: Abdominal Pain Stop: 11/22/16 02:15 Last Admin: 09/25/16 14:49 Dose: 2 mg Ondansetron HCl (Zofran) 4 mg IV Q4H PRN PRN Reason: Nausea / Vomiting Stop: 11/22/16 02:15 Last Admin: 09/25/16 14:50 Dose: 4 mg Pantoprazole Sodium (Protonix) 40 mg IVP BID [facility] Stop: 11/22/16 08:59 Last Admin: 09/25/16 16:11 Dose: 40 mg Zolpidem Tartrate (Ambien) 10 mg PO HS PRN PRN Reason: Insomnia Stop: 11/22/16 08:37 General: alert HEENT: NC/AT, PERRLA Neck: Supple, No JVD Lungs: congested Cardiovascular: RRR, Normal S1, Normal S2 Abdomen: soft non-tender, globular Extremities: excoriation Neurological: no change Internal Medicine Assmt/Plan - Assessment Assessment: Intractable nausea and vomiting possible gi bleed? abdominal pain seizures hx edometrial ca hypomagnesemia asthma ho bacteremia - Plan Plan: cont on zofran gi for colonoscopy ivf pain control cont on iv abx
[2016-09-26] MEDS: Ampicillin Sodium/Sulbactam 1.5 GM in Sodium Chloride 0.9% 100 ML IV SCH ×4 (01:12→17:24)
[2016-09-26] MEDS: Morphine Sulfate 2 mg/mL 1mL Syr IVP PRN ×6 (02:50→22:17)
[2016-09-26 07:32] LABS: PROTHROMBIN TIME (TEST) 10.4 SECONDS (9.5-11.5)
[2016-09-26] MEDS: Levothyroxine 0.025 Mg Tab PO SCH (07:51)
[2016-09-26] MEDS: D5-0.9NS w/40 mEq KCL 1,000 ML IV SCH (09:55)
[2016-09-26] MEDS ORDERED: Lidocaine 2% Gel 5 mL TP ONE (11:41)
--- NOTE | 2016-09-26 14:06 | Operative Report ---
INPATIENT GASTROINTESTINAL PROCEDURE PROCEDURE: Colonoscopy with biopsy. REFERRING PHYSICIAN: Dr. Curiel. REASON FOR PROCEDURE: Change in bowel habits, also family history of colon cancer. CONSENT: Risks, benefits, alternatives, nature, indication, possible outcomes were discussed. Mentioned bleeding, infection, perforation, , disability, cardiopulmonary distress and arrest, missed lesion and cancers, need for surgery. The patient expressed understanding and provided informed consent. PREOPERATIVE DIAGNOSIS: Father with colon cancer and change in bowel habits. POSTOPERATIVE DIAGNOSES: Normal appearing colonic mucosa. Random biopsies were taken, stool debris in the cecum. MEDICATIONS: Provided by anesthesiologist. DESCRIPTION OF PROCEDURE: The patient was placed in left side. Rectal exam was performed and was normal. Pediatric colonoscope was advanced from the anus to the cecum confirmed by ileocecal valve. Cecum base is obscured by stool debris. Lesions could be missed. Terminal ileum was briefly intubated. Scope slowly withdrawn ____ mucosa along the way. Once in the rectum, retroflexion was performed, scope was straightened and removed along with air. COMPLICATIONS: None. FINDINGS: 1. Normal appearing colonic mucosa. 2. Random biopsies taken. 3. Cecum is obscured by stool debris that could not be aggressively suctioned or lavaged. RECOMMENDATIONS: 1. Barium enema. 2. If barium enema is negative, consider repeat colonoscopy in 5 years. 3. High fiber diet. Thank you for allowing me to participate. Please call me if any questions. JOB# [id number]
--- NOTE | 2016-09-26 14:08 | Internal Medicine Prog Note ---
Internal Medicine Subjective - Subjective Service Date: 09/26/16 (patient came back from colonoscopy, c/o pelvic pain ) Patient seen and examined:: with staff Patient is:: awake Internal Medicine Objective - Results Result Diagrams: 09/25/16 07:00 09/25/16 07:00 Recent Labs: Laboratory Last Values WBC 5.9 Th/cmm (4.8-10.8) D 09/25/16 07:00 RBC 3.57 Mil/cmm (3.80-5.10) L 09/25/16 07:00 Hgb 9.7 gm/dL (11.7-15.5) L 09/25/16 07:00 Hct 29.2 % (35.0-45.0) L D 09/25/16 07:00 MCV 81.9 fl (81-100) 09/25/16 07:00 MCH 27.1 pg (27.0-31.0) 09/25/16 07:00 MCHC Differential 33.1 pg (28.0-36.0) 09/25/16 07:00 RDW 18.0 % (11.5-20.0) 09/25/16 07:00 Plt Count 304 Th/cmm (150-400) 09/25/16 07:00 MPV 9.2 fl 09/25/16 07:00 Neutrophils % 45.1 % (40.0-80.0) 09/25/16 07:00 Lymphocytes % 45.3 % (20.0-50.0) 09/25/16 07:00 Monocytes % 6.9 % (2.0-10.0) 09/25/16 07:00 Eosinophils % 1.7 % (0.0-5.0) 09/25/16 07:00 Basophils % 1.0 % (0.0-2.0) 09/25/16 07:00 PT 10.4 SECONDS (9.5-11.5) 09/26/16 06:00 INR 1.00 (0.5-1.4) 09/26/16 06:00 Sodium 140 mEq/L (136-145) 09/25/16 07:00 Potassium 3.1 mEq/L (3.5-5.1) L 09/25/16 07:00 Chloride 109 mEq/L (98-107) H 09/25/16 07:00 Carbon Dioxide 27.4 mEq/L (21.0-31.0) 09/25/16 07:00 Anion Gap 6.7 (7.0-16.0) L 09/25/16 07:00 BUN 3 mg/dL (7-25) L 09/25/16 07:00 Creatinine 0.6 mg/dL (0.6-1.2) 09/25/16 07:00 Est GFR ( Amer) > 60.0 ml/min (>90) 09/25/16 07:00 Est GFR (Non-Af Amer) > 60.0 ml/min 09/25/16 07:00 BUN/Creatinine Ratio 5.0 09/25/16 07:00 Glucose 78 mg/dL (70-105) 09/25/16 07:00 Calcium 8.7 mg/dL (8.6-10.3) 09/25/16 07:00 Phosphorus 2.7 mg/dL (2.5-5.0) 09/24/16 05:54 Magnesium 2.0 mg/dL (1.9-2.7) 09/24/16 05:54 Total Bilirubin 0.2 mg/dL (0.3-1.0) L 09/24/16 05:54 AST 9 U/L (13-39) L 09/24/16 05:54 ALT 16 U/L (7-52) 09/24/16 05:54 Alkaline Phosphatase 73 U/L (34-104) 09/24/16 05:54 Ammonia 47 umol/L (16-53) 09/24/16 05:54 Total Protein 5.4 gm/dL (6.0-8.3) L 09/24/16 05:54 Albumin 3.1 gm/dL (3.7-5.3) L 09/24/16 05:54 Globulin 2.3 gm/dL 09/24/16 05:54 Albumin/Globulin Ratio 1.4 (1.0-1.8) 09/24/16 05:54 TSH 0.21 uIU/ml (0.34-5.60) L 09/24/16 05:54 Urine Test NEGATIVE 09/24/16 08:30 - Physical Exam Vitals and I&O: Vital Signs Temp 97.4 F 09/26/16 08:00 Pulse 68 09/26/16 08:00 Resp 18 09/26/16 13:05 BP 136/73 09/26/16 08:00 Pulse Ox 100 09/26/16 08:00 Intake & Output 09/25/16 09/26/16 09/26/16 18:59 06:59 18:59 Intake Total 700 4400 Balance 700 4400 Intake: Intake, IV Amount 200 1200 Ampicillin Sodium/ 200 200 Sulbactam 1.5 gm In Sodium Chloride 0.9% 100 ml @ 100 mls/hr IV Q6HR [facility] Rx#:[id number] D5-0.9NS w/40 mEq KCL 1, 1000 000 ml @ 70 mls/hr IV . [id number] [facility] Rx#:[id number] Oral 500 3200 Other: # Voids 3 6 # Bowel Movements 1 6 Stool Characteristics Liquid Brown Active Medications: Current Medications Acetaminophen (Tylenol) 650 mg PO Q4HR PRN PRN Reason: Pain or Fever >101 Stop: 11/22/16 08:38 Albuterol Sulfate (Albuterol 2.5mg/3ml Neb Ud) 2.5 mg HHN Q2HRT PRN PRN Reason: Shortness of Breath or Wheeze Stop: 11/22/16 08:37 Diphenhydramine HCl (Benadryl 50 Mg/Ml) 25 mg IVP Q4HR PRN PRN Reason: Allergy Symptoms Stop: 11/22/16 02:18 Last Admin: 09/26/16 10:06 Dose: 25 mg Ampicillin Sodium/Sulbactam (Sodium 1.5 gm/ Sodium Chloride) 100 mls @ 100 mls/ hr IV Q6HR [facility] Stop: 11/22/16 17:59 Last Admin: 09/26/16 12:00 Dose: 100 mls/hr Potassium Chloride/Dextrose/Sod Cl (D5-0.9ns W/40 Meq Kcl) 1,000 mls @ 70 mls/ hr IV .[id number] [facility] Stop: 11/23/16 15:29 Last Admin: 09/26/16 09:55 Dose: 70 mls/hr Ipratropium [place] (Atrovent Neb 0.5mg/2.5ml) 0.5 mg HHN Q2HRT PRN PRN Reason: Shortness of Breath or Wheeze Stop: 11/22/16 08:37 Levetiracetam (Keppra) 500 mg PO BID [facility] Stop: 11/22/16 08:59 Last Admin: 09/26/16 09:48 Dose: Not Given Levothyroxine Sodium (Synthroid) 0.025 mg PO QDAC [facility] Stop: 11/23/16 07:29 Last Admin: 09/26/16 07:51 Dose: Not Given Lorazepam (Ativan) 1 mg IV Q4HR PRN; Protocol PRN Reason: Seizure Stop: 11/22/16 08:40 Montelukast Sodium (Singulair) 5 mg PO DAILY [facility] Stop: 11/24/16 08:59 Last Admin: 09/26/16 09:48 Dose: Not Given Morphine Sulfate (Morphine) 2 mg IVP Q4HR PRN PRN Reason: Abdominal Pain Stop: 11/22/16 02:15 Last Admin: 09/26/16 10:06 Dose: 2 mg Ondansetron HCl (Zofran) 4 mg IV Q4H PRN PRN Reason: Nausea / Vomiting Stop: 11/22/16 02:15 Last Admin: 09/25/16 18:37 Dose: 4 mg Pantoprazole Sodium (Protonix) 40 mg IVP BID [facility] Stop: 11/22/16 08:59 Last Admin: 09/26/16 09:47 Dose: 40 mg Zolpidem Tartrate (Ambien) 10 mg PO HS PRN PRN Reason: Insomnia Stop: 11/22/16 08:37 General: alert HEENT: NC/AT Neck: Supple Lungs: CTAB Cardiovascular: RRR, Normal S1, Normal S2, without murmur Abdomen: soft non-tender, non-distended Extremities: clear Neurological: no change Internal Medicine Assmt/Plan - Assessment Assessment: Intractable nausea and vomiting possible gi bleed? abdominal pain seizures hx edometrial ca hypomagnesemia asthma - Plan Plan: will order pelvic ultrasound pain mgmt f/u labs in am ivf for hydration
[2016-09-27] MEDS: Ampicillin Sodium/Sulbactam 1.5 GM in Sodium Chloride 0.9% 100 ML IV SCH ×5 (00:22→23:12)
[2016-09-27] MEDS: Morphine Sulfate 2 mg/mL 1mL Syr IVP PRN ×6 (02:30→22:27)
[2016-09-27] MEDS: D5-0.9NS w/40 mEq KCL 1,000 ML IV SCH (03:48)
[2016-09-27 06:31] LABS: MEAN CELL VOLUME 82.5 fl (81-100); MEAN CORPUSCULAR HEMOGLOBIN 27.3 pg (27.0-31.0); MEAN CORPUSCULAR HGB CONC 33.1 pg (28.0-36.0); MEAN PLATELET VOLUME 10.1 fl
[2016-09-27 06:47] LABS: ANION GAP 6.2 (7.0-16.0); BUN - UREA NITROGEN 6 mg/dL (7-25); CALCIUM SERUM 8.6 mg/dL (8.6-10.3); CARBON DIOXIDE 28.5 mEq/L (21.0-31.0); CHLORIDE 109 mEq/L (98-107); CREATININE - SERUM 0.6 mg/dL (0.6-1.2); GLUCOSE 84 mg/dL (70-105); POTASSIUM SERUM 3.7 mEq/L (3.5-5.1); SODIUM SERUM 140 mEq/L (136-145)
[2016-09-27 07:28] LABS: HEMOGLOBIN 9.3 gm/dL (11.7-15.5); RED BLOOD COUNT 3.39 Mil/cmm (3.80-5.10); WHITE BLOOD COUNT 4.6 Th/cmm (4.8-10.8)
[2016-09-27 07:29] LABS: PLATELET COUNT 308 Th/cmm (150-400)
[2016-09-27] MEDS: Levothyroxine 0.025 Mg Tab PO SCH (07:46)
[2016-09-27 09:13] LABS: NEUTROPHILS 42 % (40-80); PLATELET ESTIMATE ADEQUATE (NORMAL); PLATELET MORPHOLOGY NORMAL (NORMAL); TOTAL CELLS COUNTED 100
--- NOTE | 2016-09-27 09:52 | Diagnostic Imaging Report ---
Ultrasound pelvis History: Pain. History of hysterectomy in April 2016. History of abscess drainage in February 2016. Comparison: CT abdomen and pelvis on 09/24/2016 Technique: Sonography of the pelvis was performed in multiple planes. Findings: The patient is status post hysterectomy. Hypoechoic area is seen along the postsurgical bed. Small amount of free fluid is also noted. IMPRESSION: Indeterminate hypoechoic area along the postsurgical bed and small amount of free fluid in the pelvis. Findings may be sequela of postsurgical changes. Please also refer to recent CT examination of the abdomen and pelvis on 09/24/2016 for further findings. Small amount of free fluid in the pelvis.
--- NOTE | 2016-09-27 12:27 | Internal Medicine Prog Note ---
Internal Medicine Subjective - Subjective Patient seen and examined:: with staff, chart reviewed Patient is:: awake, verbal, interactive Per staff patient is:: no adverse event Internal Medicine Objective - Results Result Diagrams: 09/27/16 05:30 09/27/16 05:30 Recent Labs: Laboratory Last Values WBC 4.6 Th/cmm (4.8-10.8) L D 09/27/16 05:30 RBC 3.39 Mil/cmm (3.80-5.10) L 09/27/16 05:30 Hgb 9.3 gm/dL (11.7-15.5) L 09/27/16 05:30 Hct 28.0 % (35.0-45.0) L 09/27/16 05:30 MCV 82.5 fl (81-100) 09/27/16 05:30 MCH 27.3 pg (27.0-31.0) 09/27/16 05:30 MCHC Differential 33.1 pg (28.0-36.0) 09/27/16 05:30 RDW 18.0 % (11.5-20.0) 09/27/16 05:30 Plt Count 308 Th/cmm (150-400) 09/27/16 05:30 MPV 10.1 fl 09/27/16 05:30 Neutrophils % 45.1 % (40.0-80.0) 09/25/16 07:00 Lymphocytes % 45.3 % (20.0-50.0) 09/25/16 07:00 Monocytes % 6.9 % (2.0-10.0) 09/25/16 07:00 Eosinophils % 1.7 % (0.0-5.0) 09/25/16 07:00 Basophils % 1.0 % (0.0-2.0) 09/25/16 07:00 Neutrophils (Manual) 42 % (40-80) 09/27/16 05:30 Lymphocytes 46 % (20-50) 09/27/16 05:30 Monocytes 12 % (2-10) H 09/27/16 05:30 Platelet Estimate ADEQUATE (NORMAL) 09/27/16 05:30 Platelet Morphology NORMAL (NORMAL) 09/27/16 05:30 RBC Morph Micro Appear NORMAL (NORMAL) 09/27/16 05:30 PT 10.4 SECONDS (9.5-11.5) 09/26/16 06:00 INR 1.00 (0.5-1.4) 09/26/16 06:00 Sodium 140 mEq/L (136-145) 09/27/16 05:30 Potassium 3.7 mEq/L (3.5-5.1) 09/27/16 05:30 Chloride 109 mEq/L (98-107) H 09/27/16 05:30 Carbon Dioxide 28.5 mEq/L (21.0-31.0) 09/27/16 05:30 Anion Gap 6.2 (7.0-16.0) L 09/27/16 05:30 BUN 6 mg/dL (7-25) L 09/27/16 05:30 Creatinine 0.6 mg/dL (0.6-1.2) 09/27/16 05:30 Est GFR ( Amer) > 60.0 ml/min (>90) 09/27/16 05:30 Est GFR (Non-Af Amer) > 60.0 ml/min 09/27/16 05:30 BUN/Creatinine Ratio 10.0 09/27/16 05:30 Glucose 84 mg/dL (70-105) 09/27/16 05:30 Calcium 8.6 mg/dL (8.6-10.3) 09/27/16 05:30 Phosphorus 2.7 mg/dL (2.5-5.0) 09/24/16 05:54 Magnesium 2.0 mg/dL (1.9-2.7) 09/24/16 05:54 Total Bilirubin 0.2 mg/dL (0.3-1.0) L 09/24/16 05:54 AST 9 U/L (13-39) L 09/24/16 05:54 ALT 16 U/L (7-52) 09/24/16 05:54 Alkaline Phosphatase 73 U/L (34-104) 09/24/16 05:54 Ammonia 47 umol/L (16-53) 09/24/16 05:54 Total Protein 5.4 gm/dL (6.0-8.3) L 09/24/16 05:54 Albumin 3.1 gm/dL (3.7-5.3) L 09/24/16 05:54 Globulin 2.3 gm/dL 09/24/16 05:54 Albumin/Globulin Ratio 1.4 (1.0-1.8) 09/24/16 05:54 TSH 0.21 uIU/ml (0.34-5.60) L 09/24/16 05:54 Urine Test NEGATIVE 09/24/16 08:30 - Physical Exam Vitals and I&O: Vital Signs Temp 96.4 F 09/27/16 12:00 Pulse 84 09/27/16 12:00 Resp 20 09/27/16 12:00 BP 130/68 09/27/16 12:00 Pulse Ox 97 09/27/16 12:00 Intake & Output 09/26/16 09/27/16 09/27/16 18:59 06:59 18:59 Intake Total 200 1300 200 Balance 200 1300 200 Intake: Intake, IV Amount 200 1100 100 Ampicillin Sodium/ 200 100 100 Sulbactam 1.5 gm In Sodium Chloride 0.9% 100 ml @ 100 mls/hr IV Q6HR [facility] Rx#:[id number] D5-0.9NS w/40 mEq KCL 1, 1000 000 ml @ 70 mls/hr IV . [id number] [facility] Rx#:[id number] Oral 200 100 Other: # Voids 2 # Bowel Movements 3 Active Medications: Current Medications Acetaminophen (Tylenol) 650 mg PO Q4HR PRN PRN Reason: Pain or Fever >101 Stop: 11/22/16 08:38 Albuterol Sulfate (Albuterol 2.5mg/3ml Neb Ud) 2.5 mg HHN Q2HRT PRN PRN Reason: Shortness of Breath or Wheeze Stop: 11/22/16 08:37 Diphenhydramine HCl (Benadryl 50 Mg/Ml) 25 mg IVP Q4HR PRN PRN Reason: Allergy Symptoms Stop: 11/22/16 02:18 Last Admin: 09/27/16 10:37 Dose: 25 mg Ampicillin Sodium/Sulbactam (Sodium 1.5 gm/ Sodium Chloride) 100 mls @ 100 mls/ hr IV Q6HR [facility] Stop: 11/22/16 17:59 Last Admin: 09/27/16 11:40 Dose: 100 mls/hr Potassium Chloride/Dextrose/Sod Cl (D5-0.9ns W/40 Meq Kcl) 1,000 mls @ 70 mls/ hr IV .[id number] [facility] Stop: 11/23/16 15:29 Last Admin: 09/27/16 03:48 Dose: 70 mls/hr Ipratropium [place] (Atrovent Neb 0.5mg/2.5ml) 0.5 mg HHN Q2HRT PRN PRN Reason: Shortness of Breath or Wheeze Stop: 11/22/16 08:37 Levetiracetam (Keppra) 500 mg PO BID [facility] Stop: 11/22/16 08:59 Last Admin: 09/27/16 08:21 Dose: 500 mg Levothyroxine Sodium (Synthroid) 0.025 mg PO QDAC [facility] Stop: 11/23/16 07:29 Last Admin: 09/27/16 07:46 Dose: Not Given Lorazepam (Ativan) 1 mg IV Q4HR PRN; Protocol PRN Reason: Seizure Stop: 11/22/16 08:40 Montelukast Sodium (Singulair) 5 mg PO DAILY [facility] Stop: 11/24/16 08:59 Last Admin: 09/27/16 08:21 Dose: 5 mg Morphine Sulfate (Morphine) 2 mg IVP Q4HR PRN PRN Reason: Abdominal Pain Stop: 11/22/16 02:15 Last Admin: 09/27/16 10:37 Dose: 2 mg Ondansetron HCl (Zofran) 4 mg IV Q4H PRN PRN Reason: Nausea / Vomiting Stop: 11/22/16 02:15 Last Admin: 09/27/16 06:14 Dose: 4 mg Pantoprazole Sodium (Protonix) 40 mg IVP BID [facility] Stop: 11/22/16 08:59 Last Admin: 09/27/16 08:22 Dose: 40 mg Zolpidem Tartrate (Ambien) 10 mg PO HS PRN PRN Reason: Insomnia Stop: 11/22/16 08:37 General: alert HEENT: NC/AT, PERRLA Neck: Supple, No JVD Lungs: CTAB Cardiovascular: RRR, Normal S1, Normal S2 Abdomen: soft non-tender, globular Extremities: excoriation Neurological: no change - Procedures Procedures: Procedures Procedure Code Date COLONOSCOPY AND BIOPSY 21404 09/23/16 EXCISION OF LARGE INTESTINE, ENDO, DIAGN [id number] 09/23/16 Internal Medicine Assmt/Plan - Assessment Assessment: Intractable nausea and vomiting pelvic pain abdominal pain seizures hx edometrial ca hypomagnesemia asthma ho bacteremia - Plan Plan: ct and us pelvis does not show abcess cont on zofran gi did colonoscopy ivf pain control cont on iv abx will try regular diet Nutritional Asmnt/Malnutr-PDOC - Dietary Evaluation Malnutrition Findings (Please click <Entered> for more info): Nutritional Asmnt/Malnutrition Start: 09/26/16 17: 54 Text: Status: Complete Freq: Document 09/26/16 17:54 [facility] (Rec: 09/26/16 18:06 [facility] [id number]) Nutritional Asmnt/Malnutrition Patient General Information Nutritional Screening Moderate Risk Screening Diagnosis Intractable nausea, vomiting, diarrhea, abdominal pain, chest pain Pertinent Medical Hx/Surgical Hx Pt is a 31-year-old female admitted with chief complaint of acute chest pain, diarrhea, and nausea. S/P colonoscopy today. Pt has been with nausea and vomiting since 09/20 and continues to have mild nausea today. Full liquid diet x 2 days then NPO/clear liquid x 2 days. Pt appears well nourished with no signs of muscle or fat depletion. Wt of 116#/52.6 kg measured at [place] on 09/22. Pt reports 30# wt loss in one month due to GI distress. 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 Subjective Information Endometrial cancer, DVT, astma , hypothyroidism, seizure and sepsis Current Diet Order/ Nutrition Support Clear liquid Patient / S.O Can Pertinent Medications Ampicillin Sodium, Morphine, Zofran, Protonix, D5-0.9 ns with 40 Meq KCl Pertinent Labs (09/25) K 3.1L, BUN 3L ( decreased) Nutritional Hx/Data Height 1.6 m Height (Calculated Centimeters) 160.0 Current Weight (lbs) 52.617 kg Weight (Calculated Kilograms) 52.6 Weight (Calculated Grams) 43004.7 Usual body Weight (lbs) 138 % Usual Body Weight 119 [place] Body Weight 115 % [place] Body Weight 101 Recent Weight Change Yes Weight Status Approriate GI Symptoms GI Symptoms Nausea Vomitting Last BM Food Allergies Yes Cultural/Ethnic/Rastafari Belief No cultural and samaritan beliefs disclosed. Usual diet at home Regular Skin Integrity/Comment: Jatin 21. No skin breakdown. Current %PO Good (75-100%) Estimated Nutritional Goals Calories/Kcals/Kg Based on UBW 62.7 kg Kcals Calculated 5021-3438 kcals/day (25-30 kcals/kg) Protein g/kg: Based on UBW 62.7 kg with consideration of wt loss Protein Calculated 63-78 gm/day (1-1.25 gm/kg) Fluid: ml 9854-5688 ml/day (30-35 ml/kg) Nutritional Problem 1. Problem Problem Severe protein-calorie malnutrition related to Etiology inadequate energy intake with GI intolerance as evidenced by Signs/Symptoms: pt reports 30# wt loss (21% in one month) and NPO/liquid diet x 5 days meets less than 50% of estimated nutritional needs. Malnutrition Alert Food and Nutrition Intake (Severe) <50% est energy req 5days Interpretation of weight loss (Severe) >5% in 1 month Protein-Calorie Malnutrition Severe Is there a minimum of two criteria Yes selected? Query Text:Check all the applicable criteria. A minimum of two criteria are recommended for diagnosis of either severe or non-severe malnutrition. Malnutrition Related to Morbid Obesity Malnutrition related to morbid obesity No Intervention/Recommendation Recommendations by RD Increase Calorie Intake Protein supplementation Comments 1. Recommend Boost Breeze TID with clear liquid diet. Pt agreeable to plan. 2. Advance as tolerated to full liquid diet to goal diet of soft/bland as tolerated. Expected Outcomes/Goals Expected Outcomes/Goals Have pt meet at least 75% of estimated nutritional needs. Physician Parameters for PEM Body Mass Index (BMI) 19 - 24 (Normal) Serum Albumin (g/dl) 3.1 - 3.4 (Mild) 09/26/16 18:05 Dietitian Notes by Ysabel Vila Nutrition Note Initial Nutrition Assessment completed by Ysabel Vila on 09/26/16. Please refer to nutrition assessment under Patient Care tab of EMR. Nutrition Problem: Severe protein-calorie malnutrition related to inadequate energy intake with GI intolerance as evidenced by pt reports 30# wt loss (21% in one month) and NPO/ liquid diet x 5 days meets less than 50% of estimated nutritional needs. Nutrition Interventions: 1. Recommend Boost Breeze TID with clear liquid diet. Pt agreeable to plan. 2. Advance as tolerated to full liquid diet to goal diet of soft/bland as tolerated. F/U in 2-3 days as High risk, 09/28-09/29 Initialized on 09/26/16 18:05 - END OF NOTE
[2016-09-28] MEDS: D5-0.9NS w/40 mEq KCL 1,000 ML IV SCH (02:45)
[2016-09-28] MEDS: Morphine Sulfate 2 mg/mL 1mL Syr IVP PRN ×4 (02:45→14:30)
[2016-09-28] MEDS: Ampicillin Sodium/Sulbactam 1.5 GM in Sodium Chloride 0.9% 100 ML IV SCH ×2 (05:41→12:59)
[2016-09-28] MEDS: Levothyroxine 0.025 Mg Tab PO SCH (06:43)
--- NOTE | 2016-09-28 22:45 | Discharge Summary ---
CHIEF COMPLAINT: Diarrhea and intractable vomiting. FINAL DIAGNOSES: Nausea/vomiting, which has improved, status post EGD and colonoscopy; abdominal pain and pelvic pain, which were chronic; seizure; history of endometrial cancer; electrolyte abnormalities; asthma; ____ bacteremia; right-sided Coleman catheter. HISTORY: This is a 31-year-old female admitted from outside ER secondary to intractable vomiting and electrolyte abnormalities. The patient is on IV antibiotic secondary to bacteremia. The patient was admitted for further management. PHYSICAL EXAMINATION: VITAL SIGNS: Blood pressure 123/61, respirations 18, pulse 85, temperature 98.8. GENERAL: Young female patient who was seen with a male nurse. NECK: Supple. No mass. LUNGS: Equal breath sounds. Right-sided central line catheter. HEART: Regular rate and rhythm without appreciable murmurs. ABDOMEN: Soft, nontender. EXTREMITIES: No clubbing, cyanosis, or edema. HOSPITAL COURSE: The patient admitted to medical floor, reported to GI secondary to intractable vomiting. The patient had a CT of the abdomen and pelvis as well as pelvic ultrasound, no distinct tumor was appreciated or fluid collection, just postsurgical changes in the pelvis. The patient had upper and lower endoscopy. The patient was able to tolerate p.o. The patient was stable for discharge. CONDITION ON DISCHARGE: Fair. DISCHARGE INSTRUCTIONS: The patient is to follow with her primary care doctor. The patient is still on IV antibiotic ____. She has Home Health and ____ IV antibiotic at home that were deliver ____ pharmacy. Duration of treatment, suggested 2 weeks and I suggested for her central line to be removed on outpatient basis when she follows up. She takes full responsibility of taking care of the central line. The patient on home med as well. The patient to report to closest ER if her conditions worsen. JOB# [id number]
--- NOTE | 2016-09-29 15:19 | Pathology Report ---
[id number] Collection Date: 09/26/2016 Surgeon: Dr. Melissa Lawrence Specimen Description: Random colon biopsy. Gross Description: Received in formalin are three el soft tissue fragments ranging from 0.1 to 0.2 cm in greatest dimension. Totally submitted in one cassette. Microscopic Description: The histologic sections show benign colon mucosa with no significant inflammatory changes present. Only rare intraepithelial inflammatory cells are appreciated (involving less than 10% of the epithelial cells). The thickness of the subepithelial collagen layer appears to be normal (negative for collagenous colitis). Diagnosis: 1. Benign colon mucosa showing no significant inflammation (random colon biopsy). 2. There is no evidence for microscopic colitis. [facility]# [id number] [facility]
== END 2016-09-28 17:20 | disposition home or self-care (01) | DRG 720 ==
LOC: TELE 01:00
PROVIDERS: ADMIT Internal Medicine; ATTEND Internal Medicine
PROC: 0DBE8ZX Excision of Large Intestine, Via Natural or Artificial Opening Endoscopic, Diagnostic (ICD-10-PCS; principal; 2016-09-26)
DX: A41.9 Sepsis, unspecified organism (principal); E44.0 Moderate protein-calorie malnutrition; A09 Infectious gastroenteritis and colitis, unspecified; E83.42 Hypomagnesemia; E03.9 Hypothyroidism, unspecified; J45.909 Unspecified asthma, uncomplicated; G40.909 Epilepsy, unspecified, not intractable, without status epilepticus; R19.7 Diarrhea, unspecified; E87.6 Hypokalemia; Z90.710 Acquired absence of both cervix and uterus; Z90.49 Acquired absence of other specified parts of digestive tract; Z88.8 Allergy status to other drugs, medicaments and biological substances; Z88.5 Allergy status to narcotic agent; Z85.42 Personal history of malignant neoplasm of other parts of uterus; Z88.1 Allergy status to other antibiotic agents; Z86.718 Personal history of other venous thrombosis and embolism; Z88.6 Allergy status to analgesic agent; Z91.041 Radiographic dye allergy status; R10.2 Pelvic and perineal pain; Z68.20 Body mass index [BMI] 20.0-20.9, adult
CPT/HCPCS: 36415-UA; 76700-TC; 76856-TC; 80048-TC; 80053-TC; 81025-TC; 82140-TC; 83036-90; 83735-TC; 84100-TC; 84443-TC; 85007-TC; 85025-TC; 85027-TC; 85610-TC; 94760; C9113; J0295; J1200; J2001; J2270; J2405; J2704; J3475; J3480; J7030; J7042; Z7506; Z7610